=== PATIENT | female | born 1960 | race Caucasian/White ===

== ENCOUNTER 2018-07-20 10:21 | Day surgery (SDC) | payer BC ==
[2018-07-19 10:34] VITALS: BMI 32.4
[2018-07-20] MEDS ORDERED: SCOPOLAMINE HYDROBROMIDE 1 PATCH PATCH.TD72 ONE (13:36)
[2018-07-20] MEDS ORDERED: ALBUTEROL SO4 8 GM HFA INHALER IH ONE (13:37)
[2018-07-20] MEDS ORDERED: PROPOFOL 20 ML ONE ×5 (14:04→14:29)
[2018-07-20] MEDS ORDERED: MIDAZOLAM HCL 2 MG/2 ML SINGLE DOSE VIAL ONE (14:06)
[2018-07-20] MEDS ORDERED: ACETAMINOPHEN 1000 MG/100 ML VIAL (NON FORMULARY) IVPB ONE ×3 (14:15→15:10)
[2018-07-20] MEDS ORDERED: IBUPROFEN 800 MG/8 ML IJ IVPB SCH (14:15)
[2018-07-20] MEDS ORDERED: DEXTROSE 5%-0.45% SALINE 1,000 ML IV SCH (14:15)
--- NOTE | 2018-07-20 14:17 | HP ---
History & Physical Update - History History: No Change - Physical Physical: No Change - Assessment Assessment: No Change - Plan Plan: No Change
[2018-07-20] MEDS ORDERED: ceFAZolin SODIUM 1 GM VIAL IVPB ONE (14:28)
[2018-07-20] MEDS ORDERED: KETOROLAC TROMETHAMINE 30 MG/1 ML VIAL ONE (14:41)
[2018-07-20] MEDS ORDERED: oxyCODONE HCL 5 MG TABLET PO PRN (15:04)
[2018-07-20] MEDS ORDERED: ACETAMINOPHEN 325 MG TABLET (FP) PO PRN (15:04)
[2018-07-20] MEDS ORDERED: ONDANSETRON 4 MG/2 ML VIAL IVPUSH PRN (15:04)
[2018-07-20] MEDS ORDERED: ACETAMINOPHEN INJECTION 100 ML IVPB ONE (15:10)
[2018-07-20] MEDS ORDERED: LACTATED RINGERS SOLUTION 1,000 ML IV SCH (15:15)
--- NOTE | 2018-07-20 16:16 | OP ---
DATE OF OPERATION: 07/20/2018 PREOPERATIVE DIAGNOSIS: Left renal colic, left ureteral calculus. POSTOPERATIVE DIAGNOSIS: Left renal colic, left ureteral calculus. PROCEDURE: Cystoscopy, left ureteroscopy, left retrograde pyelogram, and left ureteral stent placement. ANESTHESIA: General, Dr. Fay. ESTIMATED BLOOD LOSS: None. DRAINS: A 22 x 6 double-J ureteral stent. PREOPERATIVE INDICATIONS: The patient is a 57-year-old female who has been complaining of left-sided flank pain for several months. She has been worked up for back pain and various other causes, which all have been negative. She underwent a CT scan, which was unclear as to whether she had a 2-mm left distal ureteral stone. One reading felt it was in the collecting system, the other one was not sure of that. Due to her pain that has persisted, and the possible finding of the stone, the patient is offered ureteroscopy. OPERATION: The patient was brought to the OR, placed on the table in the supine position, given general anesthesia and IV antibiotic and placed in the modified lithotomy position. The groin was prepped and draped sterilely. Timeout was performed. Cystoscopy was performed. The urethra and bladder appeared to be unremarkable. Both UOs were visualized with clear efflux. No tumors or stones were seen. A wire was passed up into the left kidney under fluoroscopic guidance. A 10-[place] dual-lumen catheter was used, placed into the UO, and a retrograde pyelogram was performed. The retrograde pyelogram did not reveal any obstruction or filling defects. A semirigid ureteroscope was passed into the distal left ureter. Examination of the ureter found no evidence of stones. After the scope was removed, the 6 x 22 double-J ureteral stent was left in place. Patient was woken up. Jennie [id number]
[2018-07-20 16:52] VITALS: BP 132/77; PULSE 77; TEMP 97.9
[2018-07-20] MEDS ORDERED: oxyCODONE HCL 5 MG TABLET PO ONE (17:20)
[2018-07-20] MEDS ORDERED: oxyCODONE HCL 5 MG TABLET ONE (17:23)
== END 2018-07-20 18:50 | disposition home or self-care (01) ==
LOC: JASU-SURG 10:21
PROVIDERS: ATTEND Urology
PROC: 0T9780Z Drainage of Left Ureter with Drainage Device, Via Natural or Artificial Opening Endoscopic (ICD-10-PCS; principal; 2018-07-20 13:30)
PROC: BT1FZZZ Fluoroscopy of Left Kidney, Ureter and Bladder (ICD-10-PCS; 2018-07-20 13:30)
DX: N20.1 Calculus of ureter (principal); N23 Unspecified renal colic
CPT/HCPCS: 76000-TC-FY; 94760; J0131